=== PATIENT | male | born 1970 | race Caucasian/White ===

== ENCOUNTER 2020-07-18 19:13 | Observation (INO) ==
[2020-07-18 19:46] LABS: Basophils # 0.1 K/mcL (0.0-0.2); Basophils % 0.7 %; Eosinophils # 0.3 K/mcL (0.0-0.6); Eosinophils % 3.5 %; Hematocrit 42.1 % (37.5-50.1); Hemoglobin 14.1 g/dL (12.9-16.9); Immature Granulocytes % 0.7 % (0-4); Lymphocytes # 1.4 K/mcL (0.6-4.6); Mean Corpuscular HGB Conc 33.5 g/dL (31.6-35.5); Mean Corpuscular Volume 83.7 fL (83.0-100.0); Monocytes # 0.6 K/mcL (0.0-1.3); Monocytes % 7.9 %; Neutrophils # 5.7 K/mcL (1.6-8.9); Platelet Count 171 K/mcL (140-400); Red Blood Count 5.03 M/mcL (4.19-5.50); Red Cell Distribution Width 14.1 % (11.5-14.5); Segmented Neutrophils % 70.2 %; White Blood Count 8.1 K/mcL (4.3-11.1)
[2020-07-18 20:17] LABS: Alanine Aminotransferase 25 Units/L (7-52); Albumin 4.1 g/dL (3.5-5.7); Albumin/Globulin Ratio 1.7 (1.1-2.2); Alkaline Phosphatase 77 Units/L (34-104); Aspartate Amino Transferase 17 Units/L (13-39); BUN/Creatinine Ratio 18 (6-26); Bilirubin,Total 1.4 mg/dL (0.3-1.0); Blood Urea Nitrogen 23 mg/dL (6-20); Carbon Dioxide 26 mEq/L (23-29); Chloride 103 mEq/L (98-107); Globulin 2.4 g/dL (2.4-3.5); Glucose 107 mg/dL (70-105); Osmolality,Calculated 290 (280-300); Potassium 3.9 mEq/L (3.5-5.1); Sodium 138 mEq/L (136-145); Total Protein 6.5 g/dL (6.4-8.9); eGFR For African Americans > 60 (> 60); eGFR For Non-African Americans > 60 (> 60)
[2020-07-18] MEDS ORDERED: *HR* Heparin 5,000 UNIT/ML VIAL IVP ONE (20:22)
[2020-07-18] MEDS ORDERED: *HR* Heparin 5,000 UNIT/ML VIAL IVP PRN ×2 (20:22)
[2020-07-18] MEDS ORDERED: Aspirin 325 MG TABLET PO ONE (20:25)
[2020-07-18 20:37] LABS: Heparin anti-factor XA UFH < 0.04 IU/mL (0.30-0.70); INR 0.9; Prothrombin Time 10.9 Seconds (9.4-12.1)
[2020-07-18] MEDS: Heparin 25,000UNIT/250ML 1/2NS 25,000 UNIT/250 ML IV.SOLN IVC SCH (21:43)
[2020-07-18] MEDS ORDERED: Nitroglycerin 0.4 MG TAB.SUBL SL PRN (22:41)
[2020-07-18] MEDS ORDERED: Naloxone 0.4 MG/ML INJ IVP PRN (22:42)
[2020-07-18] MEDS ORDERED: Ondansetron 4 MG/2 ML VIAL IVP PRN (22:42)
[2020-07-18] MEDS ORDERED: Perflutren Lipid Microsphere 1.3 ML in 0.9 % Sodium Chloride 8.7 ML IVP PRN (22:42)
[2020-07-18] MEDS ORDERED: Melatonin 3 MG TABLET PO PRN (22:42)
[2020-07-18] MEDS ORDERED: Acetaminophen 325 MG TABLET PO PRN (22:42)
[2020-07-18] MEDS ORDERED: tiZANidine 4 MG TABLET PO PRN (22:52)
[2020-07-18] MEDS ORDERED: hydrOXYzine pamoate 25 MG CAPSULE PO PRN (22:53)
[2020-07-18] MEDS ORDERED: *HR* Dextrose 50 % in Water (Vial) 50 ML VIAL IVP PRN (23:01)
[2020-07-18] MEDS ORDERED: D5% in Water 1,000 ML IVC PRN (23:01)
[2020-07-18] MEDS ORDERED: Dextrose Gel 15 GM/37.5 ML TUBE PO PRN ×2 (23:01)
[2020-07-18] MEDS ORDERED: Metoprolol XL (24 HR) Succ 50 MG TAB.ER.24H PO SCH (23:10)
[2020-07-18] MEDS ORDERED: lisinopriL 10 MG TABLET PO SCH (23:15)
[2020-07-19 00:32] LABS: Basophils # 0.1 K/mcL (0.0-0.2); Basophils % 0.7 %; Eosinophils # 0.3 K/mcL (0.0-0.6); Eosinophils % 3.7 %; Hematocrit 39.5 % (37.5-50.1); Hemoglobin 12.8 g/dL (12.9-16.9); Lymphocytes # 1.9 K/mcL (0.6-4.6); Lymphocytes % 26.2 %; Mean Corpuscular HGB Conc 32.4 g/dL (31.6-35.5); Mean Corpuscular Hemoglobin 27.2 pg (28.0-33.3); Mean Corpuscular Volume 83.9 fL (83.0-100.0); Mean Platelet Volume 10.4 fL (9.4-12.4); Monocytes # 0.6 K/mcL (0.0-1.3); Monocytes % 8.2 %; Neutrophils # 4.3 K/mcL (1.6-8.9); Platelet Count 156 K/mcL (140-400); Red Blood Count 4.71 M/mcL (4.19-5.50); Red Cell Distribution Width 13.9 % (11.5-14.5); Segmented Neutrophils % 60.2 %; White Blood Count 7.1 K/mcL (4.3-11.1)
[2020-07-19 00:43] LABS: BUN/Creatinine Ratio 21 (6-26); Blood Urea Nitrogen 23 mg/dL (6-20); Calcium 8.5 mg/dL (8.6-10.3); Carbon Dioxide 23 mEq/L (23-29); Chloride 104 mEq/L (98-107); Chol/HDL Ratio 3.9 (0-4.9); Cholesterol 105 mg/dL (< 200); Glucose 109 mg/dL (70-105); HDL Cholesterol 27 mg/dL (40-59); LDL Cholesterol,Calculated 42 mg/dL (< 100); Osmolality,Calculated 286 (280-300); Potassium 3.8 mEq/L (3.5-5.1); Sodium 136 mEq/L (136-145); Triglycerides 182 mg/dL (< 150); eGFR For African Americans > 60 (> 60); eGFR For Non-African Americans > 60 (> 60)
[2020-07-19] MEDS: Insulin LISPRO 300 UNITS/3 ML VIAL SUBQ SCH ×2 (07:17→13:18)
[2020-07-19] MEDS ORDERED: lisinopriL 10 MG TABLET PO SCH ×2 (07:59→09:00)
[2020-07-19] MEDS ORDERED: Metoprolol XL (24 HR) Succ 50 MG TAB.ER.24H PO SCH ×2 (07:59→09:00)
[2020-07-19 08:36] LABS: Troponin I < 0.03 ng/mL (< 0.04)
[2020-07-19] MEDS ORDERED: Multivit/Ca/Min/Fe/FA 1 TAB TABLET PO SCH (09:00)
[2020-07-19] MEDS ORDERED: Magnesium Oxide 400 MG TABLET PO SCH (09:00)
[2020-07-19] MEDS ORDERED: Aspirin Enteric Coated 81 MG Tablet PO SCH (09:00)
[2020-07-19] MEDS ORDERED: Icosapent Ethyl [Vascepa] 1 GM PO SCH (09:00)
[2020-07-19] MEDS ORDERED: Regadenoson 0.4 MG/5 ML SYRINGE IVP ONE (10:32)
[2020-07-19] MEDS: Heparin 25,000UNIT/250ML 1/2NS 25,000 UNIT/250 ML IV.SOLN IVC SCH (13:14)
[2020-07-19 13:19] VITALS: BP 124/80
[2020-07-19] MEDS ORDERED: Insulin LISPRO 300 UNITS/3 ML VIAL SUBQ SCH (21:00)
[2020-07-20 14:39] LABS: Estimated Average Glucose 131 mg/dl; Hemoglobin A1C 6.2 %
== END 2020-07-19 17:01 | disposition home or self-care (01) ==
LOC: 2ANU 19:13 → EMEROOARM 19:13 → SUATTDRO 21:57 → 2ANU 22:51
PROVIDERS: ADMIT Family Medicine; ATTEND Internal Medicine